=== PATIENT | male | born 1955 | race Caucasian/White ===

== ENCOUNTER 2024-04-17 16:04 | Observation (INO) | payer MEDICARE ==
[~2024-04-17] VITALS: Ht 177.8 cm; Wt 96.4 kg
[2024-04-17] VITALS (8 sets, daily range): BP systolic 133–147; BP diastolic 77–92
--- NOTE | 2024-04-17 16:20 | NUR ---
PT RETURNED TO LOBBY.
[2024-04-17 17:04] LABS: BASO% 0.4 % (0-3); EOS% 9.4 % (0-8); HEMATOCRIT 32.9 % (39.0-50.0); HEMOGLOBIN 11.1 g/dl (14.0-18.0); IMMATURE GRANULOCYTES 0.4 % (0.0-5.0); LYMPH% 10.6 % (15-41); MEAN CELL VOLUME 88.4 fL CALC (80.0-100.0); MEAN CORPUSCULAR HGB 29.8 pG CALC (26.0-32.0); MEAN CORPUSCULAR HGB CONC 33.7 g/dL CAL (32.0-36.0); MONO% 17.4 % (2-13); NEUT# 3.08 thou/uL (1.82-7.42); NEUT% 61.8 % (42-76); RED BLOOD COUNT 3.72 mill/uL (4.70-6.10); RED CELL DISTRI WIDTH 16.4 % (11.5-15.5)
[2024-04-17 17:19] LABS: ALKALINE PHOSPHATASE 83 u/l (38-126); ANION GAP 11 (6-22 (CALC)); BILIRUBIN, TOTAL 0.6 mg/dL (0.2-1.3); BUN 18 mg/dL (8-23); BUN/CREATININE RATIO 19 (12-20 (CALC)); CARBON DIOXIDE 27 mmol/l (22-30); CHLORIDE 106 mmol/l (95-108); CREATININE 0.9 mg/dL (0.7-1.3); ESTIMATED GFR 93 ML/MIN (>=90 (CALC)); POTASSIUM 4.1 mmol/l (3.5-5.1); SGOT/AST 34 u/l (19-48); SODIUM 140 mmol/l (137-146); TOTAL PROTEIN 6.5 g/dL (6.3-8.2)
[2024-04-17] MEDS ORDERED: methylPREDNISolone SODIUM SUCC 125 MG/2 ML SDV IV ONE (17:50)
[2024-04-17] MEDS ORDERED: AZITHROMYCIN 500 MG in SODIUM CHLORIDE 0.9% 500 ML IV ONE (17:50)
[2024-04-17] MEDS ORDERED: PEPCID20 MG PO (18:35)
--- NOTE | 2024-04-17 19:30 | NUR ---
PT REPORT RECEIBED FROM LACY RESENDIZ. PT LAYING IN BED, NO DISTRESS NOTED AT THIS TIME. VITAL SIGNS STABLE.
--- NOTE | 2024-04-17 21:38 | NUR ---
PT REPORT GIVEN TO JEN GALVAN
--- NOTE | 2024-04-17 22:00 | NUR ---
PT TRANSPORTED TO [facility]
--- NOTE | 2024-04-18 00:51 | NUR ---
RECEIVED REPORT FROM ED NURSE AIXA, PATIENT ARRIVED MS PATIÑO AT 2210, PATIENT TRASNPORTED VIA WHEELCHAIR, PATIENT ALERT ORIENTED, AMBULATORY, IV ON RAC G 20 PATENT FLUSHS WELL, ADMISSION ASESSMENT COMPLETED, LUNG SOUNDS DIMINHSED,ACTIVE BOWLE SOUND, PATIENT ORIENTED TO ROOM AND CALL LIGHT SYSTEM.
--- NOTE | 2024-04-18 04:27 | NUR ---
PATIENT RESTING IN BED, BREATHING EVN UNALBORED CALL LIGHT WITHIN REACHED.
[2024-04-18 04:52] VITALS: BP 123/72
[2024-04-18 05:30] LABS: ALBUMIN 3.8 g/dL (3.2-5.0); BILIRUBIN, TOTAL 0.5 mg/dL (0.2-1.3); CREATININE 0.7 mg/dL (0.7-1.3); POTASSIUM 4.2 mmol/l (3.5-5.1); TOTAL PROTEIN 6.3 g/dL (6.3-8.2)
[2024-04-18 05:40] LABS: BASO% 0.3 % (0-3); EOS% 0.3 % (0-8); HEMATOCRIT 33.9 % (39.0-50.0); HEMOGLOBIN 11.4 g/dl (14.0-18.0); IMMATURE GRANULOCYTES 0.3 % (0.0-5.0); LYMPH% 4.8 % (15-41); MEAN CELL VOLUME 89.9 fL CALC (80.0-100.0); MEAN CORPUSCULAR HGB 30.2 pG CALC (26.0-32.0); MEAN CORPUSCULAR HGB CONC 33.6 g/dL CAL (32.0-36.0); MONO% 2.5 % (2-13); NEUT# 3.28 thou/uL (1.82-7.42); NEUT% 91.8 % (42-76); RED BLOOD COUNT 3.77 mill/uL (4.70-6.10); RED CELL DISTRI WIDTH 16.3 % (11.5-15.5)
[2024-04-18 07:15] VITALS: BP 165/84
--- NOTE | 2024-04-18 07:28 | NUR ---
PATIENT SITTING UP IN BED AWAKE. BREATHING UNLABORED ON ROOM AIR. IV IN RAC SL;SITE CLEAN AND INTACT. PT DENIES ANY PAIN OR N/D/V AT THIS [place].E STATES TO STILL JUST HAVE A NON-PRODUCTIVE COUGH. PERSONAL ITEMS WELL CALL LIGHT WITHIN REACH. BED IN LOWEST POSITION. NO OTHER NEEDS AT THIS TIME. POC ONGOING.
[2024-04-18 07:37] VITALS: BP 165/84
[2024-04-18] MEDS ORDERED: FAMOTIDINE 20 MG/TAB PO SCH (09:00)
[2024-04-18] MEDS ORDERED: AZITHROMYCIN 500 MG/VIAL SDV IV SCH (09:40)
[2024-04-18] MEDS ORDERED: cefTRIAXone SODIUM 2 GM in SODIUM CHLORIDE 0.9% 100 ML IV SCH (12:00)
--- NOTE | 2024-04-18 12:30 | NUR ---
PATIENT UP SITTING IN RECLINER WATCHING TV. BREATHING UNLABORED ON ROOM AIR. IV IN RAC SL;SITE CLEAN AND INTACT. PT DENIES ANY PAIN OR N/D/V AT THIS TIME. PERSONAL ITEMS WELL CALL LIGHT WITHIN REACH;PT VERBALIZED UNDERSTANDING OF USE. NO OTHER NEEDS AT THIS TIME. POC ONGOING.
--- NOTE | 2024-04-18 16:04 | NUR ---
PATIENT LYING IN BED WITH EYES CLOSED RESTING. BREATHING UNLABORED ON ROOM AIR. IV IN RAC SL;SITE CLEAN AND INTACT. NO SIGNS OF DISTRESS OR PAIN NOTED. BED IN LOWEST POSITION. PERSONAL ITEMS WELL CALL LIGHT WITHIN REACH. POC ONGOING. NO NEEDS AT THIS TIME.
[2024-04-18 16:10] VITALS: BP 127/74
[2024-04-18 17:20] VITALS: BP 127/74
[2024-04-18] MEDS ORDERED: AZITHROMYCIN 500 MG in SODIUM CHLORIDE 0.9% 250 ML IV SCH (18:00)
[2024-04-18 18:50] VITALS: BP 124/76
[2024-04-19 04:27] VITALS: BP 115/55
[2024-04-19 05:50] LABS: BASO% 0.3 % (0-3); EOS% 2.7 % (0-8); HEMATOCRIT 34.5 % (39.0-50.0); HEMOGLOBIN 11.4 g/dl (14.0-18.0); IMMATURE GRANULOCYTES 0.3 % (0.0-5.0); LYMPH% 7.3 % (15-41); MEAN CORPUSCULAR HGB 30.1 pG CALC (26.0-32.0); MONO% 13.6 % (2-13); NEUT# 5.65 thou/uL (1.82-7.42); NEUT% 75.8 % (42-76); RED BLOOD COUNT 3.79 mill/uL (4.70-6.10); RED CELL DISTRI WIDTH 16.8 % (11.5-15.5)
[2024-04-19 05:53] LABS: ALBUMIN 3.9 g/dL (3.2-5.0); BILIRUBIN, TOTAL 0.4 mg/dL (0.2-1.3); CREATININE 0.8 mg/dL (0.7-1.3); TOTAL PROTEIN 6.5 g/dL (6.3-8.2)
--- NOTE | 2024-04-19 07:21 | NUR ---
PT IS AOX4 SITTING UP IN BED, RESPIRATIONS ARE EVEN AND UNLABORED, LUNGS ARE DIM BUT CLEAR THROUGHOUT WITH A DRY NONPRODUCTIVE COUGH, BOWEL SOUNDS ARE ACTIVE, PEDAL PULSES ARE PALPABLE TO TOUCH, PT DENIES PAIN AT THIS TIME.
[2024-04-19 07:34] VITALS: BP 132/78
[2024-04-19 07:52] VITALS: BP 132/78
[2024-04-19] MEDS ORDERED: PANTOPRAZOLE SODIUM Sesquihydr 40 MG/TAB PO SCH (09:00)
--- NOTE | 2024-04-19 10:28 | NUR ---
MD AT BEDSIDE DISCUSSING PLAN OF CARE AT THIS TIME.
[2024-04-19] MEDS ORDERED: ZITHROMAX250 MG PO (11:21)
[2024-04-19] MEDS ORDERED: MEDDOSEPAK PO (11:21)
[2024-04-19] MEDS ORDERED: ROBITUSSIN AC10 ML PO (11:22)
--- NOTE | 2024-04-19 12:24 | NUR ---
S WITH PT, REVIEWED DISCHARGE INSTRUCTIONS WITH PT, ANSWERED ANY QUESTIONS, REMOVED IV.
--- NOTE | 2024-04-19 12:34 | NUR ---
PT LEFT THE UNIT VIA STAFF WHEELCHAIR TRANSPORT WITH BELONGINGS IN HAND.
--- NOTE | 2024-04-21 13:39 | NUR ---
dISCHARGE FOLLOW UP CALL COMPLETED 04/21/24. pT STATES HE IS SLIGHTLY BETTER SINCE DISCHARGE. pATIENT HAS PRESCRIBED MEDICATION AND IS TAKING DIRECTED. pATIENT HAS SPOKENT TO HIS pcp AND WILL SEE HIM WHEN HE RETURNS HOME. nO NEEDS OR CONCERNS VERBALIZED AT THIS TIME.
== END 2024-04-19 12:28 | disposition home or self-care (01) ==
LOC: ED 16:04 → MS2 18:10
PROVIDERS: Nurse Practitioner; ADMIT Internal Medicine; ATTEND Internal Medicine
DX: J18.9 Pneumonia, unspecified organism (principal); I10 Essential (primary) hypertension; C34.91 Malignant neoplasm of unspecified part of right bronchus or lung; Z92.21 Personal history of antineoplastic chemotherapy; Z92.3 Personal history of irradiation; Z20.822 Contact with and (suspected) exposure to COVID-19
CPT/HCPCS: J0456; J0696; J0713; Q9967

== ENCOUNTER 2024-04-30 11:27 | Inpatient (IN) | payer MEDICARE ==
[~2024-04-30] VITALS: Ht 177.8 cm; Wt 96.2 kg
[2024-04-30] VITALS (15 sets, daily range): BP systolic 112–153; BP diastolic 72–88
[~2024-04-30 11:27] MED LIST: MEDDOSEPAK PO; PEPCID20 MG PO; ROBITUSSIN AC10 ML PO; ZITHROMAX250 MG PO
[2024-04-30 13:11] LABS: BASO% 0.1 % (0-3); EOS% 2.9 % (0-8); HEMATOCRIT 35.7 % (39.0-50.0); HEMOGLOBIN 11.9 g/dl (14.0-18.0); IMMATURE GRANULOCYTES 0.4 % (0.0-5.0); LYMPH% 3.9 % (15-41); MEAN CELL VOLUME 91.1 fL CALC (80.0-100.0); MEAN CORPUSCULAR HGB 30.4 pG CALC (26.0-32.0); MEAN CORPUSCULAR HGB CONC 33.3 g/dL CAL (32.0-36.0); MONO% 9.9 % (2-13); NEUT# 8.27 thou/uL (1.82-7.42); NEUT% 82.8 % (42-76); RED BLOOD COUNT 3.92 mill/uL (4.70-6.10); RED CELL DISTRI WIDTH 15.3 % (11.5-15.5)
[2024-04-30 13:21] LABS: ALBUMIN 3.6 g/dL (3.2-5.0); POTASSIUM 4.3 mmol/l (3.5-5.1); TOTAL PROTEIN 6.4 g/dL (6.3-8.2)
[2024-04-30 13:24] LABS: BILIRUBIN, TOTAL 0.7 mg/dL (0.2-1.3)
[2024-04-30] MEDS ORDERED: Levofloxacin 750 mg Premix 150 ML IV ONE (14:55)
[2024-04-30] MEDS ORDERED: MAGNESIUM HYDROXIDE 30 ML UDC PO PRN (16:15)
[2024-04-30] MEDS ORDERED: SODIUM CHLORIDE 0.9% 1,000 ML IV PRN (16:15)
[2024-04-30] MEDS ORDERED: ACETAMINOPHEN 325 MG/TAB PO PRN (16:15)
[2024-04-30] MEDS ORDERED: IPRATROPIUM-Albuterol 0.5MG-2.5MG/3 ML NEB SCH (19:00)
[2024-04-30] MEDS ORDERED: ENOXAPARIN SODIUM 40 MG/0.4 ML SYR SC SCH (21:00)
[2024-05-01] VITALS (7 sets, daily range): BP systolic 108–121; BP diastolic 58–69
[2024-05-01 05:12] LABS: BASO% 0.3 % (0-3); EOS% 4.4 % (0-8); HEMATOCRIT 30.9 % (39.0-50.0); HEMOGLOBIN 10.5 g/dl (14.0-18.0); IMMATURE GRANULOCYTES 0.6 % (0.0-5.0); LYMPH% 5.8 % (15-41); MEAN CELL VOLUME 90.4 fL CALC (80.0-100.0); MEAN CORPUSCULAR HGB 30.7 pG CALC (26.0-32.0); MONO% 15.2 % (2-13); NEUT# 4.81 thou/uL (1.82-7.42); NEUT% 73.7 % (42-76); RED BLOOD COUNT 3.42 mill/uL (4.70-6.10); RED CELL DISTRI WIDTH 15.4 % (11.5-15.5)
[2024-05-01 05:49] LABS: BILIRUBIN, TOTAL 0.6 mg/dL (0.2-1.3); CREATININE 0.8 mg/dL (0.7-1.3); MAGNESIUM 2.1 mg/dL (1.6-2.3); POTASSIUM 3.8 mmol/l (3.5-5.1); TOTAL PROTEIN 5.4 g/dL (6.3-8.2)
[2024-05-01 05:51] LABS: ALBUMIN 2.8 g/dL (3.2-5.0)
[2024-05-01] MEDS ORDERED: PANTOPRAZOLE SODIUM Sesquihydr 40 MG/TAB PO SCH (09:00)
[2024-05-01] MEDS ORDERED: FAMOTIDINE 20 MG/TAB PO SCH (11:36)
[2024-05-01] MEDS ORDERED: methylPREDNISolone Sod Succ 40 MG/ML SDV IV SCH (12:00)
[2024-05-01] MEDS ORDERED: IPRATROPIUM-Albuterol 0.5MG-2.5MG/3 ML NEB PRN (12:00)
[2024-05-01] MEDS ORDERED: Levofloxacin 750 mg Premix 150 ML IV SCH (15:00)
[2024-05-02 04:09] VITALS: BP 115/55
[2024-05-02 05:51] LABS: BASO% 0.1 % (0-3); HEMATOCRIT 31.1 % (39.0-50.0); HEMOGLOBIN 10.5 g/dl (14.0-18.0); IMMATURE GRANULOCYTES 0.2 % (0.0-5.0); LYMPH% 1.9 % (15-41); MEAN CELL VOLUME 90.4 fL CALC (80.0-100.0); MEAN CORPUSCULAR HGB 30.5 pG CALC (26.0-32.0); MEAN CORPUSCULAR HGB CONC 33.8 g/dL CAL (32.0-36.0); MONO% 2.3 % (2-13); NEUT# 9.59 thou/uL (1.82-7.42); NEUT% 95.5 % (42-76); RED BLOOD COUNT 3.44 mill/uL (4.70-6.10); RED CELL DISTRI WIDTH 15.1 % (11.5-15.5)
[2024-05-02 05:59] LABS: CREATININE 0.7 mg/dL (0.7-1.3); MAGNESIUM 2.1 mg/dL (1.6-2.3); POTASSIUM 4.2 mmol/l (3.5-5.1); TOTAL PROTEIN 5.6 g/dL (6.3-8.2)
[2024-05-02 06:01] LABS: BILIRUBIN, TOTAL 0.3 mg/dL (0.2-1.3)
[2024-05-02 07:00] VITALS: BP 123/51
[2024-05-02] MEDS ORDERED: guaiFENesin 200 MG/10 ML UDC PO PRN (08:10)
[2024-05-02] MEDS ORDERED: PIPERACILLIN Sodium-Tazobactam 3.375 GM in SODIUM CHLORIDE 0.9% 100 ML IV SCH (12:00)
[2024-05-02] MEDS ORDERED: VANCOMYCIN HCL 1 GM in SODIUM CHLORIDE 0.9% 250 ML IV SCH (14:00)
[2024-05-02 14:42] VITALS: BP 125/66
[2024-05-02 18:31] VITALS: BP 133/73
[2024-05-02 18:44] VITALS: BP 133/73
[2024-05-03 03:54] VITALS: BP 129/65
[2024-05-03 05:01] VITALS: BP 129/65
[2024-05-03 05:35] LABS: HEMATOCRIT 30.1 % (39.0-50.0); MEAN CELL VOLUME 91.2 fL CALC (80.0-100.0); MEAN CORPUSCULAR HGB 30.3 pG CALC (26.0-32.0); MEAN CORPUSCULAR HGB CONC 33.2 g/dL CAL (32.0-36.0); RED BLOOD COUNT 3.3 mill/uL (4.70-6.10); RED CELL DISTRI WIDTH 15.5 % (11.5-15.5)
[2024-05-03 05:58] LABS: BILIRUBIN, TOTAL 0.3 mg/dL (0.2-1.3); CREATININE 0.7 mg/dL (0.7-1.3); POTASSIUM 4.3 mmol/l (3.5-5.1); TOTAL PROTEIN 5.4 g/dL (6.3-8.2)
[2024-05-03] MEDS ORDERED: guaiFENesin-CODEINE 200-20 MG/10 ML UDC PO PRN (08:25)
[2024-05-03] MEDS ORDERED: CEFEPIME HYDROCHLORIDE 2 GM in SODIUM CHLORIDE 0.9% 100 ML IV SCH (12:00)
[2024-05-03 15:54] VITALS: BP 126/73
[2024-05-03 19:17] VITALS: BP 133/74
[2024-05-03] MEDS ORDERED: VANCOMYCIN HCL 1,250 MG in SODIUM CHLORIDE 0.9% 225 ML IV SCH (22:00)
[2024-05-04 04:50] VITALS: BP 116/59
[2024-05-04 05:34] LABS: HEMATOCRIT 29.9 % (39.0-50.0); HEMOGLOBIN 10.1 g/dl (14.0-18.0); MEAN CELL VOLUME 89.5 fL CALC (80.0-100.0); MEAN CORPUSCULAR HGB 30.2 pG CALC (26.0-32.0); MEAN CORPUSCULAR HGB CONC 33.8 g/dL CAL (32.0-36.0); RED BLOOD COUNT 3.34 mill/uL (4.70-6.10); RED CELL DISTRI WIDTH 15.2 % (11.5-15.5)
[2024-05-04 05:43] LABS: ALBUMIN 3.2 g/dL (3.2-5.0); BILIRUBIN, TOTAL 0.3 mg/dL (0.2-1.3); CREATININE 0.7 mg/dL (0.7-1.3); POTASSIUM 4.1 mmol/l (3.5-5.1); TOTAL PROTEIN 5.7 g/dL (6.3-8.2)
[2024-05-04 06:09] VITALS: BP 123/66
[2024-05-04 15:32] VITALS: BP 142/88
[2024-05-04 18:26] VITALS: BP 131/91
[2024-05-05 04:06] VITALS: BP 131/72
[2024-05-05 05:09] LABS: HEMATOCRIT 31.8 % (39.0-50.0); HEMOGLOBIN 10.6 g/dl (14.0-18.0); IMMATURE GRANULOCYTES 1.5 % (0.0-5.0); LYMPH% 2.6 % (15-41); MEAN CELL VOLUME 91.9 fL CALC (80.0-100.0); MEAN CORPUSCULAR HGB 30.6 pG CALC (26.0-32.0); MEAN CORPUSCULAR HGB CONC 33.3 g/dL CAL (32.0-36.0); MONO% 5.9 % (2-13); NEUT# 8.66 thou/uL (1.82-7.42); RED BLOOD COUNT 3.46 mill/uL (4.70-6.10); RED CELL DISTRI WIDTH 15.4 % (11.5-15.5)
[2024-05-05 05:25] LABS: ALBUMIN 2.9 g/dL (3.2-5.0); BILIRUBIN, TOTAL 0.3 mg/dL (0.2-1.3); CREATININE 0.7 mg/dL (0.7-1.3); MAGNESIUM 2.2 mg/dL (1.6-2.3); POTASSIUM 4.1 mmol/l (3.5-5.1); TOTAL PROTEIN 5.4 g/dL (6.3-8.2)
[2024-05-05 07:00] VITALS: BP 140/77
[2024-05-05] MEDS ORDERED: DOXYCYCLINE100 MG PO (10:05)
[2024-05-05] MEDS ORDERED: PREDNISONE10 MG PO (10:06)
== END 2024-05-05 10:50 | disposition home or self-care (01) | DRG 194 ==
LOC: ED 11:27 → ED-I 15:10 → ED 15:38 → MS2 15:39
PROVIDERS: Family Medicine; Nurse Practitioner Family; ADMIT Internal Medicine; ATTEND Internal Medicine
DX: J18.9 Pneumonia, unspecified organism (principal); C34.90 Malignant neoplasm of unspecified part of unspecified bronchus or lung; I10 Essential (primary) hypertension; Z92.21 Personal history of antineoplastic chemotherapy; Z92.3 Personal history of irradiation; Z20.822 Contact with and (suspected) exposure to COVID-19
CPT/HCPCS: J0692; J1650; J2543; J3370; Q9967